=== PATIENT | female | born 1985 | race African-American/Black ===

== ENCOUNTER 2016-10-18 12:00 | Emergency (ER) | payer BC ==
[~2016-10-18] VITALS: Ht 157.5 cm; Wt 83.5 kg
[~2016-10-18 12:00] MED LIST: DICLEGIS DR 101 EACH PO; ENDOCET 5-3251 EACH PO; FLEXERIL5 MG PO; HYDROCHLOROTH12.5 M3 PO; MONODOX100 MG PO; MOTRIN600 MG PO; MOTRIN800 MG PO; PRENATAL TABLE1 EAC3 PO
[2016-10-18 12:39] LABS: HEMATOCRIT 37.7 % (36.0-46.0); MCH 25.4 PG (29.0-34.0); MCHC 32.4 G/DL (30.0-36.0); MCV 78.5 FL (83-99); MEAN PLAT.VOLUME 9.4 uM^3 (9.5-12.4); PLATELET COUNT 321 K/uL (156-360); RBC DIS.WIDTH-SD 39.8 % (39-53); WHITE BLOOD COUNT 4.7 K/uL (4.1-10.2)
[2016-10-18 13:18] LABS: ADD MIUA? YES; BILIRUBIN NEGATIVE; BLOOD LARGE; COLOR YELLOW ((YELLOW)); GLUCOSE (STRIP) NEGATIVE; KETONES NEGATIVE; LEUKOCYTES NEGATIVE; NITRITE NEGATIVE; PROTEIN (STRIP) 30; SPECIFIC GRAVITY 1.023 (1.000-1.030); UROBILINOGEN 0.2 MG/DL (0.2-1.0)
[2016-10-18 13:23] LABS: BACTERIA RARE /HPF; CALCIUM OXALATE CRYSTALS 1+ /HPF; EPITHELIAL CELLS 1+ /HPF; HYALINE CASTS 0-5 /LPF; MUCUS TRACE /LPF; UCUL ADDED? NO; WHITE BLOOD CELLS 0-5 /HPF (0-5)
[2016-10-18 13:48] VITALS: BP 142/93
== END 2016-10-18 13:48 | disposition home or self-care (01) ==
LOC: EME 12:00
DX: O20.0 Threatened abortion (principal); O16.1 Unspecified maternal hypertension, first trimester; O99.011 Anemia complicating pregnancy, first trimester; D56.9 Thalassemia, unspecified; Z3A.01 Less than 8 weeks gestation of pregnancy
CPT/HCPCS: 81003; 84702; 85027; 99281; 99283

== ENCOUNTER 2017-10-13 10:13 | Outpatient (CLI) | payer OTHER ==
[~2017-10-13] VITALS: Ht 154.9 cm; Wt 96.2 kg
[2017-10-13 11:24] LABS: BASOPHIL (%) 0.2 % (0-1); EOSINOPHIL (%) 1.1 % (0-5); EOSINOPHIL COUNT 0.1 K/uL (0-0.3); HEMATOCRIT 34.2 % (36.0-46.0); HEMOGLOBIN 11.2 G/DL (11.9-15.5); IMMATURE GRANULOCYTE (%) 1.6 % (0.0-0.7); LYMPHOCYTE (%) 12.4 % (15-42); LYMPHOCYTE COUNT 1.2 K/uL (1.0-2.8); MCH 27.5 PG (29.0-34.0); MCHC 32.7 G/DL (30.0-36.0); MCV 83.8 FL (83-99); MONOCYTE (%) 5.9 % (3-12); MONOCYTE COUNT 0.6 K/uL (0-0.8); NEUTROPHIL (%) 78.8 % (45-76); NEUTROPHIL COUNT 7.3 K/uL (1.8-6.4); PLATELET COUNT 215 K/uL (156-360); RBC DIS.WIDTH-CV 14.5 % (11.8-14.6); RED BLOOD COUNT 4.08 M/uL (3.80-5.20); WHITE BLOOD COUNT 9.3 K/uL (4.1-10.2)
[2017-10-13 11:38] LABS: CHLORIDE 103 mEq/L (99-109); POTASSIUM 3.8 mEq/L (3.7-5.4); SODIUM 135 mEq/L (136-147)
[2017-10-13 11:40] LABS: GLUCOSE 73 mg/dL (70-99)
[2017-10-13 11:44] LABS: CREATININE 0.6 mg/dL (0.6-1.3); GFR ESTIMATE (CALCULATED) > 59 mL/min/; UREA NITROGEN (BUN) 8 mg/dL (9-23)
[2017-10-13 12:08] LABS: QUANTITATIVE HCG 26310.1 MIU/ML
[2017-10-13 12:57] VITALS: BP 116/69
== END 2017-10-13 16:15 | disposition home or self-care (01) ==
LOC: EME 10:13 → LDRP-OP 10:13 → EME 12:13 → EDSTATUS 12:19 → 2WEST 12:26
PROVIDERS: Emergency Medicine
DX: O99.89 Other specified diseases and conditions complicating pregnancy, childbirth and the puerperium (principal); Z3A.27 27 weeks gestation of pregnancy; R42 Dizziness and giddiness; O34.13 Maternal care for benign tumor of corpus uteri, third trimester; D25.9 Leiomyoma of uterus, unspecified
CPT/HCPCS: 59025; 80048; 84702; 85025; 93005; 99281; 99285; G0378; J7120

== ENCOUNTER 2017-12-12 15:13 | Outpatient (CLI) | payer OTHER ==
[2017-12-12] VITALS (7 sets, daily range): BP systolic 132–143; BP diastolic 64–80
[~2017-12-12] VITALS: Ht 154.9 cm; Wt 102.5 kg
[2017-12-12 16:13] LABS: BASOPHIL (%) 0.4 % (0-1); EOSINOPHIL (%) 1.8 % (0-5); EOSINOPHIL COUNT 0.1 K/uL (0-0.3); HEMATOCRIT 31.1 % (36.0-46.0); HEMOGLOBIN 10.1 G/DL (11.9-15.5); IMMATURE GRANULOCYTE (%) 1.2 % (0.0-0.7); LYMPHOCYTE (%) 18.1 % (15-42); MCH 26.6 PG (29.0-34.0); MCHC 32.5 G/DL (30.0-36.0); MCV 82.1 FL (83-99); MONOCYTE (%) 5.6 % (3-12); MONOCYTE COUNT 0.3 K/uL (0-0.8); NEUTROPHIL (%) 72.9 % (45-76); NEUTROPHIL COUNT 4.1 K/uL (1.8-6.4); PLATELET COUNT 173 K/uL (156-360); RBC DIS.WIDTH-CV 15.2 % (11.8-14.6); RBC DIS.WIDTH-SD 44.4 % (39-53); RED BLOOD COUNT 3.79 M/uL (3.80-5.20); WHITE BLOOD COUNT 5.7 K/uL (4.1-10.2)
[2017-12-12 16:24] LABS: UR CREATININE CONCENTRATION 18.1 MG/DL
[2017-12-12 16:25] LABS: CHLORIDE 104 MEQ/L (99-109); POTASSIUM 3.7 MEQ/L (3.7-5.4); SODIUM 133 MEQ/L (136-147); TOTAL BILIRUBIN 0.3 MG/DL (0.0-1.0)
[2017-12-12 16:49] LABS: CREATININE 0.8 MG/DL (0.6-1.3); GFR ESTIMATE (CALCULATED) > 59 mL/min/; GLUCOSE 187 mg/dL (70-99); UREA NITROGEN (BUN) 9 mg/dL (9-23)
[2017-12-12 17:02] LABS: ALKALINE PHOSPHATASE 80 IU/L (3-129); ALT (GPT) 13 IU/L (3-49); AST (GOT) 17 IU/L (2-34); TOTAL PROTEIN 6.1 G/DL (6.4-8.3)
[2017-12-16] MEDS ORDERED: PRENATAL TABLE1 EACH PO (14:02)
== END 2017-12-12 18:00 | disposition home or self-care (01) ==
LOC: LDRP-OP 15:13 → 2WEST 15:15
PROVIDERS: Midwife
DX: O14.92 Unspecified pre-eclampsia, second trimester (principal); Z3A.27 27 weeks gestation of pregnancy
CPT/HCPCS: 59025; 80053; 82570; 84156; 85025; G0378

== ENCOUNTER 2017-12-19 08:40 | Inpatient (IN) | payer OTHER ==
[~2017-12-19] VITALS: Ht 154.9 cm; Wt 106.1 kg
[~2017-12-19 08:40] MED LIST changes: +PRENATAL TABLE1 EACH PO
[2017-12-19 09:47] LABS: AMPHETAMINE NEGATIVE (500 ng/mL); BARBITURATES NEGATIVE (200 ng/mL); BENZODIAZEPINES NEGATIVE (150 ng/mL); BUPRENORPHINE NEGATIVE (10 ng/mL); COCAINE NEGATIVE (150 ng/mL); METHADONE NEGATIVE (200 ng/mL); METHAMPHETAMINE NEGATIVE (500 ng/mL); OPIATES (MORPHINE) NEGATIVE (100 ng/mL); OXYCODONE NEGATIVE (100 ng/mL); PHENCYCLIDINE NEGATIVE (25 ng/mL); PROPOXYPHENE NEGATIVE (300 ng/mL); THC CANNABINOIDS NEGATIVE (50 ng/mL); TRICYCLIC ANTIDEPRESSANTS NEGATIVE (300 ng/mL)
[2017-12-19 10:01] LABS: PTT 25.4 SEC (25-37)
[2017-12-19 10:16] LABS: ALKALINE PHOSPHATASE 85 IU/L (3-129); ALT (GPT) 12 IU/L (3-49); AST (GOT) 21 IU/L (2-34); CHLORIDE 104 MEQ/L (99-109); CREATININE 0.7 MG/DL (0.6-1.3); GFR ESTIMATE (CALCULATED) > 59 mL/min/; GLUCOSE 77 mg/dL (70-99); POTASSIUM 4.2 MEQ/L (3.7-5.4); SODIUM 135 MEQ/L (136-147); TOTAL BILIRUBIN 0.4 MG/DL (0.0-1.0); TOTAL PROTEIN 5.9 G/DL (6.4-8.3); UREA NITROGEN (BUN) 11 mg/dL (9-23)
[2017-12-20] VITALS (31 sets, daily range): BP systolic 123–190; BP diastolic 60–83
[2017-12-20 12:50] LABS: BASE EXCESS -3.1 mEq/L (-3 to +3); CARBOXY HGB 2.7 % (0-5); METHEMOGLOBIN 1.5 % (0-1.5); O2 SATURATION (CALCULATED) 71.3 % (95-99); PCO2 51 mm Hg (35-45); PO2 31 mm Hg (80-100); pH 7.28 (7.35-7.45)
[2017-12-20 12:51] LABS: SITE CORD BLOOD GAS
[2017-12-20 12:53] LABS: PCO2 60 mm Hg (35-45); PO2 21 mm Hg (80-100); SITE CORD BLOOD GAS
[2017-12-20 12:54] LABS: BASE EXCESS -2.3 mEq/L (-3 to +3); BICARBONATE 25.7 mEq/L (22-26); CARBOXY HGB 2.3 % (0-5); METHEMOGLOBIN 2.9 % (0-1.5); O2 SATURATION (CALCULATED) 75.9 % (95-99); pH 7.24 (7.35-7.45)
[2017-12-20] MEDS ORDERED: MOTRIN800 MG PO (13:04)
[2017-12-21 03:30] VITALS: BP 144/76
[2017-12-21 06:12] LABS: BASOPHIL (%) 0.3 % (0-1); EOSINOPHIL (%) 0.8 % (0-5); EOSINOPHIL COUNT 0.1 K/uL (0-0.3); IMMATURE GRANULOCYTE (%) 0.6 % (0.0-0.7); LYMPHOCYTE (%) 18.8 % (15-42); LYMPHOCYTE COUNT 1.7 K/uL (1.0-2.8); MCH 26.5 PG (29.0-34.0); MCHC 32.5 G/DL (30.0-36.0); MCV 81.6 FL (83-99); MONOCYTE (%) 9.5 % (3-12); MONOCYTE COUNT 0.9 K/uL (0-0.8); NEUTROPHIL COUNT 6.3 K/uL (1.8-6.4); PLATELET COUNT 160 K/uL (156-360); RBC DIS.WIDTH-CV 15.3 % (11.8-14.6); RBC DIS.WIDTH-SD 44.7 % (39-53)
[2017-12-21 06:19] LABS: HEMOGLOBIN 9.1 G/DL (11.9-15.5); RED BLOOD COUNT 3.43 M/uL (3.80-5.20)
[2017-12-21 08:05] VITALS: BP 135/77
[2017-12-21] MEDS ORDERED: LABETALOL HCL200 MG PO (09:35)
[2017-12-21 12:30] VITALS: BP 132/68
[2017-12-21 14:50] VITALS: BP 133/62
[2017-12-21 23:10] VITALS: BP 156/85
[2017-12-22 07:56] VITALS: BP 135/71
[2017-12-22 15:54] VITALS: BP 119/57
[2017-12-22 20:10] VITALS: BP 153/72
[2017-12-22 21:10] VITALS: BP 148/83
== END 2017-12-22 21:15 | disposition home or self-care (01) | DRG 775 ==
LOC: 2SOUTH → 2WEST 08:40 → 2SOUTH 13:37 → 2WEST 12-20 09:17
PROVIDERS: Obstetrics & Gynecology
PROC: 3E0P7VZ Introduction of Hormone into Female Reproductive, Via Natural or Artificial Opening (ICD-10-PCS; 2017-12-19)
PROC: 10E0XZZ Delivery of Products of Conception, External Approach (ICD-10-PCS; principal; 2017-12-20)
PROC: 0KQM0ZZ Repair Perineum Muscle, Open Approach (ICD-10-PCS; principal; 2017-12-20)
PROC: 3E0R3BZ Introduction of Anesthetic Agent into Spinal Canal, Percutaneous Approach (ICD-10-PCS; 2017-12-20)
PROC: 00HU33Z Insertion of Infusion Device into Spinal Canal, Percutaneous Approach (ICD-10-PCS; 2017-12-20)
PROC: 10907ZC Drainage of Amniotic Fluid, Therapeutic from Products of Conception, Via Natural or Artificial Opening (ICD-10-PCS; 2017-12-20)
DX: O70.1 Second degree perineal laceration during delivery (principal); O66.0 Obstructed labor due to shoulder dystocia; O14.04 Mild to moderate pre-eclampsia, complicating childbirth; O99.214 Obesity complicating childbirth; E66.9 Obesity, unspecified; O34.13 Maternal care for benign tumor of corpus uteri, third trimester; D25.9 Leiomyoma of uterus, unspecified; O40.3XX0 Polyhydramnios, third trimester, not applicable or unspecified; Z68.41 Body mass index [BMI] 40.0-44.9, adult; Z3A.37 37 weeks gestation of pregnancy; Z37.0 Single live birth
CPT/HCPCS: 36415; 36600; 80053; 82803; 85025; 85610; 85730; 86850; 86900; 86901; C1755; G0378; J0595; J3010; J7120